=== PATIENT | female | born 1990 | race Hispanic/Latino ===

== ENCOUNTER 2017-12-30 16:19 | Emergency (ER) | payer SELFPAY ==
--- NOTE | 2017-12-30 16:44 | RAD ---
THREE VIEWS LEFT ANKLE: 12/30/17 HISTORY: Fall. Pain. COMPARISON: None. FINDINGS: Joint spaces are preserved. Ankle mortise is intact. No fracture or significant soft tissue swelling. IMPRESSION: No posttraumatic sequela. POS: [facility]
[2017-12-30] MEDS ORDERED: Ketorolac Tromethamine 30 MG/ML VIAL ONE (17:01)
== END 2017-12-30 17:30 | disposition home or self-care (01) ==
LOC: ERS 16:19
DX: S93.412A Sprain of calcaneofibular ligament of left ankle, initial encounter (principal); Z79.899 Other long term (current) drug therapy; W10.9XXA Fall (on) (from) unspecified stairs and steps, initial encounter
CPT/HCPCS: 96372; J1885

== ENCOUNTER 2019-08-28 18:48 | Emergency (ER) | payer SELFPAY ==
--- NOTE | 2019-08-28 20:01 | RAD ---
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 No pneumothorax or pleural fluid. No focal consolidation or alveolar edema. IMPRESSION: No acute findings.
== END 2019-08-28 20:31 | disposition home or self-care (01) ==
LOC: ERS 18:48
DX: G43.909 Migraine, unspecified, not intractable, without status migrainosus (principal); F32.9 Major depressive disorder, single episode, unspecified; Z79.899 Other long term (current) drug therapy
CPT/HCPCS: 71046; 87081; 87430; 87804

== ENCOUNTER 2021-10-03 09:47 | Emergency (ER) | payer SELFPAY ==
[2021-10-03 18:24] LABS: SARS-CoV-2 PCR by NAA DETECTED (NotDetected)
== END 2021-10-03 11:31 | disposition home or self-care (01) ==
LOC: ERS 09:47
DX: U07.1 COVID-19 (principal)
CPT/HCPCS: 99283; U0003; U0005

== ENCOUNTER 2022-06-01 16:24 | Emergency (ER) | payer SELFPAY, OTHER ==
[2022-06-01] MEDS ORDERED: Proparacaine 0.5% Opth 15 ML BOT ONE (18:23)
[2022-06-01] MEDS ORDERED: Fluorescein Opthalmic Strip ONE (18:23)
== END 2022-06-01 19:32 | disposition home or self-care (01) ==
LOC: ERS 16:24
DX: H57.11 Ocular pain, right eye (principal)
CPT/HCPCS: 99282

== ENCOUNTER 2022-12-02 14:37 | Emergency (ER) | payer SELFPAY ==
[2022-12-02 17:45] LABS: SARS-CoV-2 NAA Rapid Test DETECTED (NotDetected)
== END 2022-12-02 18:44 | disposition home or self-care (01) ==
LOC: ERS 14:37
DX: U07.1 COVID-19 (principal)
CPT/HCPCS: 99283